=== PATIENT | female | born 1965 | race African-American/Black ===

== ENCOUNTER 2023-10-10 07:55 | Day surgery (SDC) | payer OTHER ==
[2023-10-04 15:21] VITALS: BMI 41.3
[2023-10-10 09:51] VITALS: RESP 18; TEMP 97
[2023-10-10 10:04] VITALS: BP 131/77; PULSE 86
== END 2023-10-10 10:05 | disposition home or self-care (01) ==
LOC: FASU-ENDO 07:55
PROVIDERS: ATTEND Internal Medicine Gastroenterology
PROC: 0DB68ZX Excision of Stomach, Via Natural or Artificial Opening Endoscopic, Diagnostic (ICD-10-PCS; principal; 2023-10-10 09:04)
DX: Z85.020 Personal history of malignant carcinoid tumor of stomach (principal); K31.7 Polyp of stomach and duodenum; K29.60 Other gastritis without bleeding
CPT/HCPCS: 88305-TC; 88341-TC; 88342-TC